=== PATIENT | female | born 1975 | race Two or more races ===

== ENCOUNTER 2016-07-27 07:42 | Emergency (ER) | payer SELFPAY ==
[~2016-07-27] VITALS: Ht 162.6 cm; Wt 77.1 kg
[2016-07-27] MEDS ORDERED: NAPROXEN 500 MG TABLET PO STA (08:03)
[2016-07-27] MEDS ORDERED: PREDNISONE 20 MG TABLET PO ONE (08:15)
[2016-07-27] MEDS ORDERED: HYDROCODONE/APAP 5/325MG TABLET. PO ONE (08:15)
[2016-07-27] MEDS ORDERED: CYCLOBENZAPRINE 10 MG TABLET. PO ONE (08:15)
--- NOTE | 2016-07-27 08:36 | PHYS DOC ---
Past Medical History Past Medical History: Hypertension Adult General Chief Complaint Chief Complaint: UPPER EXTREMITY PAIN HPI HPI Patient is a 41 year old female with history of hypertension who presents today with moderate right upper extremity pain especially on her shoulder that began yesterday morning. Patient denies any known injury. 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 Patient states the pain is worse when she tries to raise her right shoulder up. Patient is also complaining of bruising on the right forearm that she noted this morning, patient states it began as a sting to the area yesterday and this morning she noted a big bruise to the area. She does not recall anything biting her. Patient denies any fever. Denies any chest pain or shortness of breath. Review of Systems Review of Systems Constitutional: Denies fever or chills [] Eyes: Denies change in visual acuity, redness, or eye pain [] HENT: Denies nasal congestion or sore throat [] Respiratory: Denies cough or shortness of breath [] Cardiovascular: No additional information not addressed in HPI [] GI: Denies abdominal pain, nausea, vomiting, bloody stools or diarrhea [] : Denies dysuria or hematuria [] Musculoskeletal: Right upper extremity pain with bruising to the right forearm Integument: Denies rash or skin lesions [] Neurologic: Denies headache, focal weakness or sensory changes [] Endocrine: Denies polyuria or polydipsia [] Current Medications Current Medications Current Medications Medications (Trade) Dose Ordered Sig/Zeke Start Time Stop Time Status Last Admin Dose Admin Acetaminophen/ Hydrocodone Bitart (Lortab 5/325) 1 tab 1X ONCE 07/27/16 08:15 07/27/16 08:31 DC 07/27/16 08:46 1 TAB Cyclobenzaprine HCl (Flexeril) 10 mg 1X ONCE 07/27/16 08:15 07/27/16 08:31 DC 07/27/16 08:45 10 MG Naproxen (Naprosyn) 500 mg 1X STAT 07/27/16 08:03 07/27/16 08:31 DC 07/27/16 08:45 500 MG Prednisone (Prednisone) 60 mg 1X ONCE 07/27/16 08:15 07/27/16 08:31 DC 07/27/16 08:46 60 MG Allergies Allergies Allergies Coded Allergies Type Severity Reaction Last Updated Verified No Known Drug Allergies 07/27/16 No Physical Exam Physical Exam Constitutional: Well developed, well nourished, no acute distress, non-toxic appearance. [] HENT: Normocephalic, atraumatic, bilateral external ears normal, oropharynx moist, no oral exudates, nose normal. [] Eyes: PERRLA, EOMI, conjunctiva normal, no discharge. [] Neck: Normal range of motion, no tenderness, supple, no stridor. [] Cardiovascular:Heart rate regular rhythm, no murmur [] Lungs & Thorax: Bilateral breath sounds clear to auscultation [] Abdomen: Bowel sounds normal, soft, no tenderness, no masses, no pulsatile masses. [] Skin: Warm, dry, no erythema, no rash. [] Back: No tenderness, no CVA tenderness. [] Extremities: Right shoulder with no obvious edema, no ecchymosis, an area of bruising approximately 5 x 5 cm noted on the right proximal forearm. The area is not warm but is tender to palpate. Limited range of motion to the right shoulder especially raising it above 90. Full range of motion to the right forearm.+2. radial pulse. Cap refill less than 2 seconds the right upper extremity. Adequate ulnar radial medial sensation to the right upper extremity. Neurologic: Alert and oriented X 3, normal motor function, normal sensory function, no focal deficits noted. [] Psychologic: Affect normal, judgement normal, mood normal. [] Current Patient Data Vital Signs Vital Signs Date Time Temp Pulse Resp B/P Pulse Ox O2 Delivery O2 Flow Rate FiO2 07/27/16 08:46 19 98 Room Air 07/27/16 07:52 98.3 84 154/89 98.3 EKG EKG [] Radiology/Procedures Radiology/Procedures []EXAM: Right shoulder, 2 views; right forearm, 2 views. HISTORY: Fall. COMPARISON: None. FINDINGS: Right shoulder: Internal and external rotation and transscapular views of the right shoulder obtained. There is no fracture, dislocation or subluxation. There is a small subacromial spur. Right forearm: Frontal and lateral views of the right forearm are obtained. There is no fracture, dislocation or subluxation. There is no elbow effusion. IMPRESSION: No acute osseous finding. DICTATED and SIGNED BY: SIA CALVO MD DATE: 07/27/16 0851 CC: MALIKA CLAYTON APRN; NO PCP ~ PROCEDURE: VENOUS UPPER EXTREMITY RIGHT Right upper extremity venous Doppler ultrasound History: Right upper extremity bruising. Comparison: None. Procedure: Color Doppler, spectral Doppler, and grayscale images are obtained with and without compression of the upper extremity veins. Imaging included the internal jugular, subclavian, axillary, brachial, cephalic, ulnar, radial, and basilic veins. Findings: There is normal flow and compressibility of all visualized vein segments. No venous thrombosis is identified. Impression: No evidence of right upper extremity venous thrombosis. DICTATED and SIGNED BY: AURELIO GONZALEZ MD DATE: 07/27/16 0932 CC: MALIKA CLAYTON APRN; NO PCP ~ Course & Med Decision Making Course & Med Decision Making Pertinent Labs and Imaging studies reviewed. (See chart for details) Patient is in the ED with right upper extremity pain and bruising to the right forearm, most of her pain is right shoulder. EKG was done to rule out a STEMI 08:[address] Oconnell, Sinus rhythm, HR 72 QRS interval 78 no STEMI Right shoulder x-ray interpreted by radiologist is noted for a small subacromial spur, right forearm x-ray interpreted by radiologist has no acute findings. Right upper extremity venous doppler is negative. Patient's pain is consistent with tendinitis of the shoulder. She was provided a sling in the ED, applied by the ED RN, neurovascular exam done by me post splint application is normal, advised not to leave her right upper extremity in the sling longer than an hour per day, recommended full range of motion to the right upper extremity several times a day as well as dangle it to prevent frozen shoulder. Ice elevation recommended to the right upper extremity. Discharged with Medrol Dosepak. Discharged with naproxen and Flexeril as well. Provided an orthopedic doctor for follow-up in a week. 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 Recommended ice to the area. Provided return precautions and discharged in stable condition. Dragon Disclaimer Dragon Disclaimer This electronic medical record was generated, in whole or in part, using a voice recognition dictation system. Departure Departure Impression: Primary Impression: Right shoulder tendinitis Additional Impression: Bruising Disposition: HOME, SELF-CARE Condition: STABLE Referrals: CONTRERAS MCNULTY MD See her in one week if symptoms continue Patient Instructions: Biceps Tendon Tendinitis (Distal) with Rehab-SportsMed Additional Instructions: You were seen for right shoulder tendinitis. This is an inflammation of the shoulder, keep the affected extremity iced and elevated, wear the sling as needed, do not live your right upper extremity in the sling for longer than an hour, try and remove the right upper extremity from the sling, dangle it and take it through full range of motion to prevent frozen shoulder. Follow-up with the provided orthopedic doctor in one week if pain continues. Scripts Methylprednisolone (Medrol)4 Mg Tab.ds.pk1 Pkg PO UD #1 PKG Prov:MALIKA CLAYTON APRN 07/27/16 Cyclobenzaprine Hcl 10 Mg Tablet1 Tab PO TID #30 TAB Prov:MALIKA CLAYTON APRN 07/27/16 Naproxen 500 Mg Tablet.dr1 Tab PO BID #60 TAB Ref 1 Prov:MALIKA CLAYTON APRN 07/27/16 Problem Qualifiers MALIKA CLAYTON APRN Jul 27, 2016 08:36
--- NOTE | 2016-07-27 09:04 | RAD ---
EXAM: Right shoulder, 2 views; right forearm, 2 views. HISTORY: Fall. COMPARISON: None. FINDINGS: Right shoulder: Internal and external rotation and transscapular views of the right shoulder obtained. There is no fracture, dislocation or subluxation. There is a small subacromial spur. Right forearm: Frontal and lateral views of the right forearm are obtained. There is no fracture, dislocation or subluxation. There is no elbow effusion. IMPRESSION: No acute osseous finding.
--- NOTE | 2016-07-27 09:10 | EKG ---
[facility] [address] [place] [address] Test Date: 2016-07-27 Test Time: 08:10:56 Pat Name: CLIFFORD MELVIN Department: Room: Gender: F Instrumentation Manager: : 1975 Requested By: MALIKA CLAYTON Order Number: [id number] Reading MD: Gee Enrique Measurements Intervals [place] Rate: 72 P: 34 FL: 192 QRS: 15 QRSD: 78 T: 33 QT: 384 QTc: 422 Interpretive Statements SINUS RHYTHM Electronically Signed On 08-01-2016 10:08:44 COMPLIANCE REVIEW OFFICER by Gee Enrique
--- NOTE | 2016-07-27 09:35 | RAD ---
Right upper extremity venous Doppler ultrasound History: Right upper extremity bruising. Comparison: None. Procedure: Color Doppler, spectral Doppler, and grayscale images are obtained with and without compression of the upper extremity veins. Imaging included the internal jugular, subclavian, axillary, brachial, cephalic, ulnar, radial, and basilic veins. Findings: There is normal flow and compressibility of all visualized vein segments. No venous thrombosis is identified. Impression: No evidence of right upper extremity venous thrombosis.
[2016-07-27 09:39] VITALS: BP 140/86
[2016-07-27] MEDS ORDERED: METH4TAB2 PO (09:52)
[2016-07-27] MEDS ORDERED: NAPR500T8 PO (09:52)
[2016-07-27] MEDS ORDERED: CYCL10TA2 PO (09:52)
== END 2016-07-27 10:17 | disposition home or self-care (01) ==
LOC: ER 07:42
DX: S50.11XA Contusion of right forearm, initial encounter (principal); M75.91 Shoulder lesion, unspecified, right shoulder; I10 Essential (primary) hypertension; X58.XXXA Exposure to other specified factors, initial encounter; Y93.89 Activity, other specified; Y99.0 Civilian activity done for income or pay; Y92.511 Restaurant or cafe as the place of occurrence of the external cause
CPT/HCPCS: 73030; 73090; 93005; 93971; 99284; J7512